=== PATIENT | male | born 1990 ===

== ENCOUNTER 2017-04-22 16:56 | Emergency (ER) | payer SELFPAY ==
[2017-04-22] MEDS ORDERED: PERCOCET 5/325 PO ONE (20:14)
[2017-04-22] MEDS ORDERED: FLEXERIL PO ONE (20:14)
[2017-04-22] MEDS ORDERED: DECADRON IM ONE (20:14)
[2017-04-22 20:28] LABS: Bilirubin,Urine NEG (Negative); Blood,Urine NEG (Negative); Ketones,Urine TR mg/dL (Negative); Leukocyte Esterase,Urine NEG (Negative); Mucus,Urine FEW /HPF; Nitrite,Urine NEG (Negative); Protein,Urine <15 mg/dL mg/dL (Negative); RBC,Urine < 1.0 /HPF (0.0-6.0); Urobilinogen,Urine < 2.0 mg/dL (<2.0); WBC,Urine < 1.0 /HPF (0.0-6.0)
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
[2017-04-22 21:52] VITALS: BP 132/89
== END 2017-04-22 21:52 | disposition home or self-care (01) ==
LOC: ED 16:56
DX: G89.29 Other chronic pain (principal); M54.5 Low back pain; J45.909 Unspecified asthma, uncomplicated; Z87.891 Personal history of nicotine dependence
CPT/HCPCS: 81001; 96372; 99283; J1100